=== PATIENT | female | born 1995 | race Caucasian/White ===

== ENCOUNTER 2017-05-17 23:25 | Outpatient (CLI) | payer OTHER, MEDICAID, SELFPAY ==
[2017-05-18 00:08] VITALS: BMI 34.9
[2017-05-18 01:39] VITALS: BP 117/69; PULSE 78; RESP 16; TEMP 36.6; O2SAT 98
--- NOTE | 2017-05-21 17:46 | OB.TRI.NOTE ---
History of Present Illness Was patient seen by the physician?: No Reason For Visit: R/O LABOR Home Medications Medication Instructions Recorded Albuterol Inhaler [Ventolin Hfa] 2 puff IH Q4H PRN PRN 10/12/16 Pnv No.122/Iron/Folic Acid 1 each PO DAILY 10/12/16 [ Multi Tablet] Desmopressin Acetate [Stimate] 150 mcg NASAL DAILY PRN 03/31/17 Famotidine [Pepcid] 20 mg PO BID 05/18/17 Allergies aspirin Allergy (Verified 05/18/17 00:13) Hives ibuprofen [From Motrin] Allergy (Verified 05/18/17 00:13) Hives Physical Exam Vitals: Vital Signs Temp Pulse Resp BP Pulse Ox 97.8 F 78 16 117/69 98 05/18/17 01:39 05/18/17 01:39 05/18/17 01:39 05/18/17 01:39 05/18/17 01:39 NST - FHR Rate Baby A Baseline: 135 Variability:: Moderate Accelerations:: 15 x 15 Decelerations:: None Uterine Activity:: irregular Impression/Plan NST for false labor
== END 2017-05-18 01:50 | disposition home or self-care (01) ==
LOC: WPOUT 23:54 → WP 23:55
PROVIDERS: Family Provider Obstetrics & Gynecology; Visit Provider Obstetrics & Gynecology
DX: O47.9 False labor, unspecified (principal); Z3A.00 Weeks of gestation of pregnancy not specified
CPT/HCPCS: 59025; 59050; 99218; G0378

== ENCOUNTER 2017-05-21 14:00 | Outpatient (CLI) | payer OTHER, MEDICAID, SELFPAY ==
[2017-05-21 14:37] VITALS: BMI 34.9
--- NOTE | 2017-06-18 08:36 | OB.TRI.NOTE ---
History of Present Illness Was patient seen by the physician?: No Reason For Visit: R/O LABOR Home Medications Medication Instructions Recorded Albuterol Inhaler [Ventolin Hfa] 2 puff IH Q4H PRN PRN 10/12/16 Pnv No.122/Iron/Folic Acid 1 each PO DAILY 10/12/16 [ Multi Tablet] Desmopressin Acetate [Stimate] 150 mcg NASAL DAILY PRN 03/31/17 Famotidine [Pepcid] 20 mg PO BID 05/18/17 Acetaminophen [Tylenol] 1,000 mg PO Q8H PRN PRN tablet 05/24/17 Allergies aspirin Allergy (Verified 05/18/17 00:13) Hives ibuprofen [From Motrin] Allergy (Verified 05/18/17 00:13) Hives Impression/Plan NST for false labor
== END 2017-05-21 15:56 | disposition home or self-care (01) ==
LOC: WPOUT 14:09 → WP 14:18
PROVIDERS: Visit Provider Obstetrics & Gynecology
DX: O47.9 False labor, unspecified (principal); Z3A.00 Weeks of gestation of pregnancy not specified
CPT/HCPCS: 59025; 59050; 99218; G0378

== ENCOUNTER 2017-05-22 09:20 | Inpatient (IN) | payer OTHER, MEDICAID, SELFPAY ==
[2017-05-22 09:13] VITALS: BMI 34.9
[2017-05-22] MEDS: hydrOXYzine 50 MG/ML Vial 25 MG IM (09:33)
[2017-05-22] MEDS: Lactated Ringers 1,000 ML 50 ML IV ×2 (09:50→17:57)
[2017-05-22 10:11] LABS: Hemoglobin 11.4 g/dl (12.0-15.0); Mean Corp Hgb Conc 32.6 g/gl (32-36); Mean Corpuscular Hgb 25.7 pg (27.0-32.0); Mean Platelet Vol. 9.7 fl (6.2-12.0); Platelet Count 274 K/mm3 (150-450); RBC Distribution Width CV 14.2 % (11.6-14.6); Red Blood Count 4.43 M/mm3 (4.2-5.4); White Blood Count 20.5 K/mm3 (4.4-11.0)
[2017-05-22 10:24] LABS: Scan Indicated on CBC? Y/N NO
--- NOTE | 2017-05-22 14:03 | HP.PCM_ITS ---
- Problem List (1) Von Willebrand disease, type I Status: Acute (2) Supervision of normal first Status: Acute (3) Asthma affecting , antepartum Status: Acute (4) Anemia affecting Status: Acute History Date of Admission: 05/22/17 Final NATACHA: 05/18/17 Final NATACHA Source: US <20 weeks Gestational age: 40 Weeks and 4 Days History of this : 21 y/o female Presents today, 05/22/17, for induction of labor. Pt has a h/ o Von Willebrand disease. Patient is +CF on carrier screen and GBS+, the rest of the course of was uncomplicated. OB Hx: - Von Willebrand disease - Anemia - Asthma - Depression Allergies aspirin Allergy (Verified 05/18/17 00:13) Hives ibuprofen [From Motrin] Allergy (Verified 05/18/17 00:13) Hives Current Medications Acetaminophen (Tylenol) 325 - 650 mg PO Q4H PRN PRN PRN Reason: PAIN OR FEVER >100.4F Al Hydroxide/Mg Hydroxide (Mylanta Ii) 15 - 30 ml PO Q4H PRN PRN PRN Reason: INDIGESTION Citric Acid/Sodium Citrate (Bicitra) 30 ml PO UD PRN Penicillin G Potassium/Dextrose (Penicillin G Potassium) 3 mu in 50 mls @ 100 mls/hr IV Q4H AMOL Lactated Ringer's () 1,000 mls @ 50 mls/hr IV .Q20H [facility] Last Admin: 05/22/17 09:50 Dose: 50 mls/hr Nalbuphine HCl (Nubain) 5 - 10 mg IV Q3H PRN PRN PRN Reason: PAIN (4-10/10) Ondansetron HCl (Zofran) 4 mg IV Q8H PRN PRN PRN Reason: NAUSEA Promethazine HCl (Phenergan (Ll)) 6.25 - 12.5 mg IV Q4H PRN PRN; Protocol PRN Reason: IF NAUSEA PERSISTS Sodium Chloride () 5 - 15 ml IV UD [facility] Last Admin: 05/22/17 11:11 Dose: Not Given Smoking Status: Never smoker Alcohol: None Drug Use: none Number of Fetus(es): 1 Review of Systems Constitutional: Denies: Chills, Fever Cardiovascular: Denies: Chest Pain Respiratory: Denies: Shortness of Breath Gastrointestinal: Denies: Nausea, Vomiting Psychiatric: Denies: Depression Physical Exam Vitals: GBS positive CF carrier RPR negative Rubella immune HBsAG negative HIV negative O positive GC/CT negative General: Alert, Oriented x3, No apparent distress Cardiovascular: Regular rate, Regular Rhythm, No murmurs Lungs: Clear to auscultation, No rhonchi, No wheeze Abdomen: Bowel Sounds Present, Gravid Extremities:: No edema Presentation: Cephalic Cervix Dilation (cm): 4 Station: -2 Effacement (%): 70 Assessment/Plan Active and Suspected Problems Von Willebrand disease, type I (Acute) Supervision of normal first (Acute) Asthma affecting , antepartum (Acute) Anemia affecting (Acute) A: Early Labor, progressing Von Willebrands Type 1 GBS positive CF carrier P: 1) Ad sun to L&D for routine orders. Expectant management 2) Hydrotherapy, Nitrous, positional changes 3) Prior to delivery will administer DDAVP. 3) [facility] physician notified. Berna Wade CNM
--- NOTE | 2017-05-22 14:03 | PCM.PROGNOTE ---
Subjective: Doing well, coping with contractions in tub. Family at bedside and offering support. Vistaril effective for support and was able to rest. Objective: Cervical exam: 6cm/90%/-1, IBOW Contractions: every 6 minutes, moderate variability. - Physical Exam Weight: 185 lb Body Mass Index (BMI) 34.9 Laboratory Tests Past 24 Hrs 05/22/17 05/22/17 09:50 09:50 WBC 20.5 H RBC 4.43 Hgb 11.4 L Hct 35.0 L MCV 79.0 L MCH 25.7 L MCHC 32.6 RDW 14.2 RDW Differential 40.0 Plt Count 274 MPV 9.7 Blood Type O POSITIVE Antibody Screen NEGATIVE Assessment/Plan A: Active Labor GBS positive History of Von Willebrand's Disease P: 1) Continue with expectant management 2) GBS prophylaxis 3) Hydrotherapy, position changes
[2017-05-22] MEDS: Nalbuphine 10 MG/ML Ampul IV (18:45)
--- NOTE | 2017-05-22 20:45 | PCM.PROGNOTE ---
Patient Problems: Active and Suspected Problems Von Willebrand disease, type I (Acute) Supervision of normal first (Acute) Asthma affecting , antepartum (Acute) Anemia affecting (Acute) Subjective: Resting in bed. Nubain and Phenergan effective for pain relief. Family at bedside. Objective: FHT 135, moderate variability, accels, variable decel, Category 2 [place]: every 3 minutes, moderate to strong with palpation Cervix 6cm/80%/-1. AROM for clear fluid, small amount. - Physical Exam Weight: 185 lb Body Mass Index (BMI) 34.9 Intake and Output for Last 24 Hours 05/20/17 05/21/17 05/22/17 23:59 23:59 23:59 Intake Total 2006 Output Total 300 / 300 Balance 1707 / 1707 Laboratory Tests Past 24 Hrs 05/22/17 05/22/17 09:50 09:50 WBC 20.5 H RBC 4.43 Hgb 11.4 L Hct 35.0 L MCV 79.0 L MCH 25.7 L MCHC 32.6 RDW 14.2 RDW Differential 40.0 Plt Count 274 MPV 9.7 Blood Type O POSITIVE Antibody Screen NEGATIVE Medical Necessity - Tobacco Use Smoking Status: Never smoker Assessment/Plan Active and Suspected Problems Von Willebrand disease, type I (Acute) Supervision of normal first (Acute) Asthma affecting , antepartum (Acute) Anemia affecting (Acute) A: Active labor progressing Category 2 FHT P: Continue with expectant management Nitrous and Nubain for pain management.
--- NOTE | 2017-05-22 21:40 | PCM.PN.OB ---
Patient Problems: Active and Suspected Problems Von Willebrand disease, type I (Acute) Supervision of normal first (Acute) Asthma affecting , antepartum (Acute) Anemia affecting (Acute) Subjective: Patient uncomforatbel in bed not coping well with contractions. Family at bedside. Objective: TOCO: every 2-4 minutes, strong to palpation Cervix 8cm/90%/-1 - Physical Exam Comment: FHT 130, moderate variability, accels, Category 1. Weight: 185 lb Body Mass Index (BMI) 34.9 Intake and Output for Last 24 Hours 05/20/17 05/21/17 05/22/17 23:59 23:59 23:59 Intake Total 2006 Output Total 300 / 300 Balance 1707 / 1707 Laboratory Tests Past 24 Hrs 05/22/17 05/22/17 09:50 09:50 WBC 20.5 H RBC 4.43 Hgb 11.4 L Hct 35.0 L MCV 79.0 L MCH 25.7 L MCHC 32.6 RDW 14.2 RDW Differential 40.0 Plt Count 274 MPV 9.7 Blood Type O POSITIVE Antibody Screen NEGATIVE Medical Necessity - Tobacco Use Smoking Status: Never smoker Assessment/Plan Active and Suspected Problems Von Willebrand disease, type I (Acute) Supervision of normal first (Acute) Asthma affecting , antepartum (Acute) Anemia affecting (Acute) A:Active Labor Progressing Category 1 FHT P:1) Nitrous for pain relief, positional changes 2) DDAVP prior to delivery.
[2017-05-22] MEDS: Oxytocin 30 units/NS 500 ml 30 UNITS/500 ML IV.SOLN 334 UNITS IV (23:48)
[2017-05-23] MEDS: Oxytocin 30 units/NS 500 ml 30 UNITS/500 ML IV.SOLN 167 UNITS IV (00:18)
--- NOTE | 2017-05-23 00:25 | OP.PCM_ITS ---
- Problem List (1) Von Willebrand disease, type I Status: Acute (2) Supervision of normal first Status: Acute (3) Asthma affecting , antepartum Status: Acute (4) Anemia affecting Status: Acute Vaginal Delivery Maternal Presentation: Active Labor Amniotic Membrane Rupture Type: Artificial Final NATACHA: 05/18/17 Final NATACHA Source: LMP Gestational age: 40 Weeks and 5 Days Date of Procedure: 05/22/17 Pre-Operative Diagnosis: Post-Operative Diagnosis: Surgery/ Procedure Performed: Spontaneous Vaginal Delivery Type of Anesthesia: Local with 1% lidocaine Description of Procedure: Received DDAVP prior to delivery. Progressed to complete with strong urge. of viable male infant over 1st degree perineal laceration unmedicated. Delivered in ITALO position and placed on maternal abdomen. Spontaneous cry, mouth and nares for secretions. APGARS 8,9. Weight pending. Pitocin IV started for active 3rd stage management. Placenta delivered with maternal effort, intact , 3 vessel cord. Fundus firm. Perineum inspected and revealed 1st degree perineal laceration. Repaired with 1% Lidocaine and 3.0 vicryl. Hemostasis achieved. 150ml EBL. Planning to breastfeed. Mom and baby stable, bonding well. Sponge and instrument count correct. notified of delivery. Berna Solorio, MS 3 present and assisted with delivery. Presentation: Vertex, ITALO Placental Delivery Description: Spontaneous Placenta Disposition: [facility] Cord Vessel Description: 3 Vessels Cord Entanglement: None Estimated Blood Loss: 150ml A gender: Male (1 minute): 8 (5 minute): 9 Episiotomy Description: None Laceration: Perineal Extension/lac, 1st degree Medications given after delivery: IV Pitocin
[2017-05-23 04:08] VITALS: BP 101/56; PULSE 101; RESP 17; TEMP 36.3; O2SAT 95
[2017-05-23] MEDS: Acetaminophen 500 MG Tablet 1000 MG PO ×2 (04:42→23:58)
[2017-05-23 10:00] VITALS: BP 101/62; PULSE 83; RESP 16; TEMP 36.8
--- NOTE | 2017-05-23 10:39 | PCM.PN.OB ---
Patient Problems: Active and Suspected Problems Von Willebrand disease, type I (Acute) Supervision of normal first (Acute) Asthma affecting , antepartum (Acute) Anemia affecting (Acute) Subjective: Doing well per patient and nursing staff. Taking PO without difficulty. Denies headache, visual changes, chest pain, shortness of breath, leg pain, increased vaginal bleeding or clots. without difficulty, bonding well. Voiding and passing flatus. Planning for D/C home tomorrow. - Physical Exam General: Alert, Oriented x3, Cooperative Lungs: Clear to auscultation, Normal air movement, No rhonchi, No wheeze Cardiovascular: Regular rate, Regular Rhythm, No murmurs Abdomen: Bowel Sounds Present, Soft, Non Tender, - - Fundus firm, 2 below U Extremities: No edema, - - Mary's negative Psych/Mental Status: Normal Affect, Appropriate Vital Signs Temp Pulse Resp BP Pulse Ox 97.3 F L 101 H 17 101/56 L 95 05/23/17 04:08 05/23/17 04:08 05/23/17 04:08 05/23/17 04:08 05/23/17 04:08 Oxygen Delivery Method Room Air Weight: 185 lb Body Mass Index (BMI) 34.9 Intake and Output for Last 24 Hours 05/21/17 05/22/17 05/23/17 23:59 23:59 23:59 Intake Total 2006 Output Total 300 / 300 300 / 300 Balance 1707 / 1707 -300 / -300 Laboratory Tests Past 24 Hrs 05/22/17 09:50 Blood Type O POSITIVE Antibody Screen NEGATIVE Medical Necessity - Tobacco Use Smoking Status: Never smoker Assessment/Plan Active and Suspected Problems Von Willebrand disease, type I (Acute) Supervision of normal first (Acute) Asthma affecting , antepartum (Acute) Anemia affecting (Acute) A: PPD#1 1st degree perineal laceration Von WIllebrand P: 1) Routine care. instructions given. 2) Planning for D/C home tomorrow.
--- NOTE | 2017-05-23 10:59 | CASEMGMT ---
See Social Work Assessment in baby's chart SW met with patient. Her sister was also present and ok with talking in front of her. She normally lives in [place], [place], but will be staying with her mom with baby in [place] for awhile. She has no issues with transportation. She has family and friends for support. She said father of baby is supportive. She has all needed supplies. She was working prior to delivery. Her cell phone rang and she apologized and said this was father of baby. SW could hear a recording with a female voice and then mother of baby started talking to father of baby. SW waited a little bit, but it was obvious she was going to be talking for awhile. SW said SW will come back. SW went back to room and patient was off the phone. She apologized. CATHY asked if father of baby was going to be coming to the hospital to see baby. She said no. CATHY asked if he was out of town and she said yes. She was not very forthcoming regarding information on father of baby. CATHY continued with assessment. She is not on WIC. She is on her mom's insurance and has Medicaid as a secondary insurance. She does have a history of anxiety and depression. She is not on medication, but has been to counseling in the past. She feels she has been managing well. Discussed her history of substance abuse. She said it was before she knew she was and has not plans on continuing use of any illegal substances. Discussed [facility], however not sure which county referral would go to as she will be with her mom for awhile before going back to [facility]. She was not interested in referral, but was given a packet of resources and information. She was given resources for [place] and [facility]. Plan: d/c home with baby. She will be staying with her mom Rhonda Josue [employer]
--- NOTE | 2017-05-23 11:29 | DCINST_ITS ---
Discharge Diet: No Restrictions Discharge Activity: Return to Normal Activity May resume sexual activity in: 6 weeks Weight Bearing Status: Weight bearing as tolerated Call your doctor if your incision/area has: Continuous Slow Oozing, Sudden Increased Bleeding, Increased Pain/ Swelling, Increased Redness, Foul Smelling Discharge Call your doctor if you observe: Fever of 101 or Higher, Coldness, Increased Pain, Numbness or Tingling, Change in Color, Inability to urinate, Inability to have a bowel movement, Using more than one pad per hour, Shortness of breath, Dizziness, Fainting spells, Swelling in the ankles, Chest pain, Prolonged hiccoughing, Increased palpitations (irregular heartbeat), Calf discomfort, Uncontrolled pain Additional Instructions: If you experience any of the following, contact your healthcare provider. * Bleeding that soaks a pad every hour for 2 hours * Fever 100.4 or higher * Unrelieved incision or abdominal pain * Swelling, redness, discharge or bleeding from your incision or episiotomy site * Your incision begins to separate * Problems urinating (including inability to urinate or burning while urinating) . * Visual changes * Severe headache * Flu-like symptoms * Pain or redness in one of both of your breasts * Pain, warmth, tenderness or swelling in your legs, especially the calf area * Frequent nausea and vomiting * Symptoms of depression or anxiety If you experience any of the following, call 911 or go to the nearest Emergency Room. * Chest pain * Problems breathing * Seizure activity * Partial or complete paralysis of a body part, slurred speech, weakness or drooping of the face, or a sudden inability to walk or hold your balance Allergies/Adverse Reactions: Allergies aspirin Allergy (Verified 05/18/17 00:13) Hives ibuprofen [From Motrin] Allergy (Verified 05/18/17 00:13) Hives Medications to take at Discharge Albuterol Inhaler [Ventolin Hfa] 2 puff IH Q4H PRN PRN 10/12/16 Pnv No.122/Iron/Folic Acid [ Multi Tablet] 1 each PO DAILY 10/12/16 Desmopressin Acetate [Stimate] 150 mcg NASAL DAILY PRN 03/31/17 Famotidine [Pepcid] 20 mg PO BID 05/18/17 Please Follow Up With: Berna Wade CNM When: Call to make an appointment with your doctor in 6 weeks. If you had elevated Blood Pressure or 4th degree laceration you will need to be seen in 2 weeks. Primary Care Physician: Care Physician,No Primary [Primary Care Provider] -
[2017-05-23 14:00] VITALS: BP 109/71; PULSE 95; RESP 16; TEMP 36.9
[2017-05-23 18:00] VITALS: BP 102/57; PULSE 89; RESP 18; TEMP 36.6
[2017-05-23 19:58] VITALS: BP 106/73; PULSE 95; RESP 18; TEMP 36.8
[2017-05-24 02:00] VITALS: BP 91/57; PULSE 87; RESP 16; TEMP 36.2
[2017-05-24 07:46] VITALS: BP 103/71; PULSE 78; RESP 18; TEMP 36.8; O2SAT 99
[2017-05-24] MEDS: Etonogestrel 68 MG IMPLANT SQ (12:41)
[2017-05-24 12:50] VITALS: BP 108/75; PULSE 91; RESP 16; TEMP 36.4
--- NOTE | 2017-05-24 13:07 | PCM.PN.OB ---
Patient Problems: Active and Suspected Problems Normal spontaneous vaginal delivery (Acute) Von Willebrand disease, type I (Acute) Supervision of normal first (Acute) Asthma affecting , antepartum (Acute) Anemia affecting (Acute) Subjective: Doing well per patient and nursing staff. Ambulating and taking PO without difficulty. Voiding and having BM. without complaints. D/C home today. Requesting Nexplanon. Objective: Nexplanon consent reviewed and signed. Patient name and confirmed. Reviewed risks, benefits, MOA, and insertion. Left arm prepped with Betadine. 1% lidocaine 2ml injected SQ. Nexplanon inserted without difficulty. Patient tolerated well. Steri strips applied and pressure dressing. - Physical Exam General: Alert, Oriented x3, Cooperative Lungs: Clear to auscultation, Normal air movement, No rhonchi, No wheeze Cardiovascular: Regular rate, Regular Rhythm, No murmurs Abdomen: Bowel Sounds Present, - - Fundus firm 2 below U Extremities: No edema, - - Mary's negative Psych/Mental Status: Normal Affect, Appropriate Vital Signs Temp Pulse Resp BP Pulse Ox 97.5 F L 91 16 108/75 99 05/24/17 12:50 05/24/17 12:50 05/24/17 12:50 05/24/17 12:50 05/24/17 07:46 Oxygen Delivery Method Room Air Weight: 185 lb Body Mass Index (BMI) 34.9 Intake and Output for Last 24 Hours 05/22/17 05/23/17 05/24/17 23:59 23:59 23:59 Intake Total 2006 Output Total 300 / 300 300 / 300 Balance 1707 / 1707 -300 / -300 Medical Necessity - Tobacco Use Smoking Status: Never smoker Assessment/Plan Active and Suspected Problems Normal spontaneous vaginal delivery (Acute) Von Willebrand disease, type I (Acute) Supervision of normal first (Acute) Asthma affecting , antepartum (Acute) Anemia affecting (Acute) A: PPD#2 Nexplanon insertion P: 1) Nexplanon inserted. Instructinos given to remove pressing dressing in 24hr and to let steri strips fall off. 2) and D/C instructions given 3) D/C home today. 4) Follow up in 6 weeks for visit.
[2017-05-24 17:00] VITALS: BP 112/64; PULSE 76; RESP 18; TEMP 36.8; O2SAT 99
== END 2017-05-24 17:00 | disposition home or self-care (01) | DRG 774 ==
LOC: WPOUT 09:27 → WP 09:27
PROVIDERS: Admitting Provider Obstetrics & Gynecology; Visit Provider Obstetrics & Gynecology
DX: O99.12 Other diseases of the blood and blood-forming organs and certain disorders involving the immune mechanism complicating childbirth (principal); O98.82 Other maternal infectious and parasitic diseases complicating childbirth; D68.0 Von Willebrand disease; O48.0 Post-term pregnancy; Z3A.40 40 weeks gestation of pregnancy; O99.02 Anemia complicating childbirth; B95.1 Streptococcus, group B, as the cause of diseases classified elsewhere; O70.0 First degree perineal laceration during delivery; Z37.0 Single live birth; O75.89 Other specified complications of labor and delivery; J45.909 Unspecified asthma, uncomplicated
CPT/HCPCS: 59025; 59050; 85027; 86850; 86900; 99218; J7120; G0378; J2597